=== PATIENT | female | born 1980 | race Caucasian/White ===

== ENCOUNTER 2017-06-26 19:44 | Emergency (ER) | payer OTHER ==
[2017-06-26 19:53] VITALS: BP 120/79; PULSE 65; RESP 16; TEMP 97.7; O2SAT 98
--- NOTE | 2017-06-26 21:19 | ED PDOC ---
Lower Extremity Pain/Injury Time Seen by Provider: 06/26/17 19:55 Chief Complaint (Nursing): Lower Extremity Problem/Injury Chief Complaint (Provider): Lower Extremity Problem/Injury History Per: Patient History/Exam Limitations: no limitations Onset/Duration Of Symptoms: Hrs Current Symptoms Are (Timing): Still Present Additional Complaint(s): 37 year old female presents to the ED complaining of a bruise to her left lower leg. Denies any trauma or falls. Patient states she took no medicine for pain prior to arrival. Patient expresses concern after she flew home from [place] today. Upon landing, patient went to urgent care for evaluation who did not evaluate her and advised her to go to the ED for an ultrasound due to possibility of blood clot. Patient is now requesting U/S evaluation. Denies smoking, control use, history of cancer, shortness of breath, cough, chest pain, calf tenderness, and pedal edema. PMD: None LNMP: One day prior to arrival. Past Medical History Reviewed: Historical Data, Nursing Documentation, Vital Signs Vital Signs: Last Vital Signs Temp 97.7 F 06/26/17 19:50 Pulse 65 06/26/17 19:50 Resp 16 06/26/17 19:50 BP 120/79 06/26/17 19:50 Pulse Ox 98 06/26/17 19:50 - Surgical History Surgical History: No Surg Hx - Family History Family History: States: Unknown Family Hx - Social History Current smoker - smoking cessation education provided: No Alcohol: Occasional Drugs: Denies - Allergies Allergies/Adverse Reactions: Allergies Allergy/AdvReac Type Severity Reaction Status Date / Time clarithromycin Allergy ITCHING Verified 06/26/17 19:53 Review of Systems ROS Statement: Except As Marked, All Systems Reviewed And Found Negative Skin: Positive for: Other (bruising to left lower leg) Physical Exam - Reviewed Nursing Documentation Reviewed: Yes Vital Signs Reviewed: Yes - Physical Exam Comments: GENERAL APPEARANCE: Patient is awake, alert, oriented x 3, in no acute distress. Ambulatory in ED with a steady gait. NECK: Supple, FROM ENT: Mucus membranes moist. SKIN: Warm, dry; (-) cyanosis. RESPIRATORY: (-) wheezing (-) rales (-) rhonchi; Lungs clear to auscultation bilaterally. Speaking in full sentences, respirations even and nonlabored. LOWER EXTREMITY: (+) 2cm x 2cm area of ecchymosis to lateral, proximal left lower leg, (-) tenderness, (-) skin break (+) full ROM of knee, ankle, and foot , (-) calf tenderness (-) palpable cord (-) pedal edema, (-) instability of valgus or varus stress, (-) anterior and posterior draw sign (+) 2+ distal pulses CARDIOVASCULAR: (-) murmur NEUROLOGIC: (+) distal sensation and strength symmetric to bilateral lower extremities. - Laboratory Results Urine POC: Negative - ECG O2 Sat by Pulse Oximetry: 98 (RA) Pulse Ox Interpretation: Normal Medical Decision Making Medical Decision Making: Clinical Impression: Ecchymosis of lower leg, concern for DVT Plan: -- Test -- Duplex Lower Extremity US 2114 Upreg: negative. Patient in ultrasound. 2199 U/S reviewed, radiology report follows EXAM: US Duplex Left Lower Extremity Veins CLINICAL HISTORY: 37 years old, female; Signs and symptoms; Other: Bruiced calf; Additional info: Sent by urgent care for u/s to R/O dvt TECHNIQUE: Real-time duplex ultrasound scan of the left lower extremity veins integrating B -mode twodimensional vascular structure, Doppler spectral analysis, color flow Doppler imaging and compression. COMPARISON: No relevant prior studies available. FINDINGS: Deep veins: Unremarkable. No DVT in the visualized common femoral, femoral, proximal deep femoral or popliteal veins. The veins demonstrate normal color flow, are normally compressible, with normal phasic flow and/or augmentation response. Superficial veins: Unremarkable. No thrombus in the visualized great saphenous vein. Soft tissues: No acute findings. No popliteal cyst. IMPRESSION: Normal left lower extremity duplex venous ultrasound. Thank you for allowing us to participate in the care of your patient. Dictated and Authenticated by: Damon Sr MD 06/26/2017 9:40 PM Eastern Time ([place] & [place]) On re-evaluation, patient offers no additional complaints, denies any chest pain or SOB. On exam, patient remains AAOx3, in no acute distress. On exam, neck is supple, lungs CTA, cardiac RRR, abdomen is soft and non-tender, neuro exam shows no focal findings. VSS. Diagnostic results d/w the patient in great detail. Dx of ecchymosis of lower extremity d/w the patient. Based on history, exam and diagnostic results plan will be for discharge and outpatient follow up. Advised to follow up with primary care physician in 1-2 days without fail. Advised to take medication as prescribed. Return to the emergency room at any time for any new or worsening symptoms. Patient states she fully agrees with and understands discharge instructions. States that she agrees with the plan and disposition. Verbalized and repeated discharge instructions and plan. I have given the patient opportunity to ask any additional questions. Scribe Attestation: Documented by Hima Donovan, acting as a scribe for Katy Odonnell PA-C. Provider Scribe Attestation: All medical record entries made by the Scribe were at my direction and personally dictated by me. I have reviewed the chart and agree that the record accurately reflects my personal performance of the history, physical exam, medical decision making, and the department course for this patient. I have also personally directed, reviewed, and agree with the discharge instructions and disposition. Disposition - Clinical Impression Clinical Impression: Contusion - Patient ED Disposition Is Patient to be Admitted: No Counseled Patient/Family Regarding: Diagnosis, Need For Followup - Disposition Referrals: [facility] [Outside] Disposition: Routine/Home Disposition Time: 21:57 Condition: STABLE Instructions: Taking Care of Bruises, Contusion (DC) Forms: [employer] (Romanian) Print Language: FRISIAN - POA Present On Arrival: None
--- NOTE | 2017-06-27 10:43 | US ---
HISTORY: sent by urgent care for U/S to r/o dvt . PRIORS: None. FINDINGS: 2-D, color and duplex Doppler analysis of the lower extremity venous circulation using routine protocol from the femoral veins through the popliteal veins. Venous compressibility: Normal. Flow and augmentation patterns: Normal. Visualized veins upper third of calf: Normal. Killian cyst: None. IMPRESSION: No sonographic or Doppler evidence for DVT in left lower extremity. A preliminary report was provided by [facility].
== END 2017-06-26 22:24 | disposition home or self-care (01) ==
LOC: H.ER 19:44
DX: S80.12XA Contusion of left lower leg, initial encounter (principal); Y92.89 Other specified places as the place of occurrence of the external cause

== ENCOUNTER 2017-10-07 20:43 | Emergency (ER) | payer OTHER ==
[2017-10-07 20:55] VITALS: RESP 16; TEMP 98.7
--- NOTE | 2017-10-07 22:04 | ED PDOC ---
HPI: Female Pain Time Seen by Provider: 10/07/17 21:08 Chief Complaint (Nursing): Female Genitourinary Chief Complaint (Provider): Female Genitourinary History Per: Patient History/Exam Limitations: no limitations Onset/Duration Of Symptoms: Days (x5) Additional Complaint(s): Bethnay Chapman is a 37 y/o [place] female with past medical history of kidney stones and UTI who presents to the ED complaining of right flank pain, onset x5 days ago. Patient states that she developed some urinary symptoms on Sunday and she went to urgent care where she was told she has a UTI. She is on her last day of Macrobid but symptoms have not improved and she still has urinary urgency. These symptoms with associated persisting right flank pain prompted today's ED visit. She denies any fever, chills, nausea, or vomiting. PMD: None provided Past Medical History Reviewed: Historical Data, Nursing Documentation, Vital Signs Vital Signs: Last Vital Signs Temp 98.7 F 10/07/17 20:51 Pulse 82 10/07/17 20:51 Resp 16 10/07/17 20:51 BP 119/50 L 10/07/17 20:51 Pulse Ox 100 10/07/17 20:51 - Medical History PMH: Kidney Stones Other PMH: UTI - Surgical History Surgical History: No Surg Hx - Family History Family History: States: Unknown Family Hx - Social History Current smoker - smoking cessation education provided: No Alcohol: None Drugs: Denies - Immunization History Hx Tetanus Toxoid Vaccination: No - Home Medications Home Medications: Ambulatory Orders Medication Instructions Recorded Ciprofloxacin [Cipro] 500 mg PO Q12 #14 tab 10/08/17 Tamsulosin [Flomax] 0.4 mg PO DAILY #7 cap 10/08/17 traMADol [Ultram] 50 mg PO Q6 #12 tab 10/08/17 - Allergies Allergies/Adverse Reactions: Allergies Allergy/AdvReac Type Severity Reaction Status Date / Time clarithromycin Allergy ITCHING Verified 06/26/17 19:53 Review of Systems ROS Statement: Except As Marked, All Systems Reviewed And Found Negative Constitutional: Negative for: Fever, Chills Gastrointestinal: Negative for: Nausea, Vomiting Genitourinary Female: Positive for: Dysuria, Frequency, Incontinence Physical Exam - Reviewed Nursing Documentation Reviewed: Yes Vital Signs Reviewed: Yes - Physical Exam Appears: Positive for: Non-toxic, No Acute Distress Head Exam: Positive for: ATRAUMATIC, NORMOCEPHALIC Skin: Positive for: Normal Color, Warm, Dry Eye Exam: Positive for: EOMI, Normal appearance, PERRL Neck: Positive for: Normal, Painless ROM, Supple Cardiovascular/Chest: Positive for: Regular Rate, Rhythm. Negative for: Murmur Respiratory: Positive for: Normal Breath Sounds. Negative for: Respiratory Distress Gastrointestinal/Abdominal: Positive for: Normal Exam, Soft. Negative for: Tenderness Back: Positive for: R CVA Tenderness (very mild) Extremity: Positive for: Normal ROM. Negative for: Pedal Edema, Deformity Neurologic/Psych: Positive for: Alert, Oriented. Negative for: Motor/Sensory Deficits - Laboratory Results Result Diagrams: 10/07/17 22:47 10/07/17 22:47 - ECG O2 Sat by Pulse Oximetry: 100 (RA) Pulse Ox Interpretation: Normal Medical Decision Making Medical Decision Making: Initial Impression: 37 y/o female with persisting urinary symptoms and right flank pain in setting of recent UTI Initial Plan: --CT abdomen and pelvis w/o contrast --US - Pelvis/Transvag --CMP --CBC with differential --Toradol [address] Adomen/Pelvis IMPRESSION: 1. Moderate right hydronephrosis and dilation of the right ureter secondary to an obstructing 4 mm calculus in the distal right ureter/ureteropelvic junction. 2. Diverticulosis. 2322 US Pelvis/Transvag FINDINGS: Uterus/cervix: The uterus measures 7.8 x 1.5 x 7.1 cm. No masses. The endometrium is normal in size and appearance, measuring 9 mm in thickness. Right ovary: The right ovary measures 2.4 x 1.9 x 1.9 cm. Normal flow is identified by color Doppler. No masses or significant dominant cysts. Normal blood flow. Left ovary: The left ovary measures 1.9 x 3.0 x 1.9 cm. Normal flow is identified by color Doppler. A dominant follicle is seen, measuring 1.3 x 1.9 x 1.6 cm. A 1.2 cm parovarian cyst is seen. Normal blood flow. Free fluid: There is no evidence of free pelvic fluid. IMPRESSION: No acute findings. 0028 On re-evaluation, patient reports marked improvement in her symptoms. Patient is stable upon discharge home. Instructed to take medications as prescribed and to follow up with PMD/clinic in 2-3 days. Diagnosis: Ureteral calculus, UTI Scribe Attestation: Documented by Nuno Segovia, acting as a scribe for Aidan Garcia MD. Provider Scribe Attestation: All medical record entries made by the Scribe were at my direction and personally dictated by me. I have reviewed the chart and agree that the record accurately reflects my personal performance of the history, physical exam, medical decision making, and the department course for this patient. I have also personally directed, reviewed, and agree with the discharge instructions and disposition. Disposition - Clinical Impression Clinical Impression: Ureteral calculus - Disposition Referrals: Isela Garcia MD [Staff Provider] - Aden Spring MD [Medical Doctor] - Disposition: Routine/Home Disposition Time: 00:30 Condition: STABLE Prescriptions: Ciprofloxacin [Cipro] 500 mg PO Q12 #14 tab Tamsulosin [Flomax] 0.4 mg PO DAILY #7 cap traMADol [Ultram] 50 mg PO Q6 #12 tab Instructions: Kidney Stones in Adults Forms: [employer] (Hong Konger)
[2017-10-07 22:53] LABS: BASO % 0.9 % (0.0-2.0); EOS # 0.2 K/uL (0.0-0.7); EOS % 5.5 % (0.0-4.0); LYMPH # 1.5 K/uL (1.0-4.3); LYMPH % 37.4 % (20.0-40.0); MEAN CELL VOLUME 84.9 fl (81.0-99.0); MEAN CORPUSCULAR HEMOGLOBIN 27.6 pg (27.0-31.0); MEAN CORPUSCULAR HGB CONC 32.5 g/dL (33.0-37.0); MEAN PLATELET VOLUME 10.6 fl (7.2-11.7); MONO # 0.4 K/uL (0.0-0.8); MONO % 9.8 % (0.0-10.0); NEUT # 1.9 K/uL (1.8-7.0); NEUT % 46.4 % (50.0-75.0); NRBC % 0.2 % (0.0-0.0); RBC 3.98 Mil/uL (3.80-5.20); RED CELL DISTRIBUTION WIDTH 14.4 % (11.5-14.5)
[2017-10-07 23:00] LABS: URINE BILIRUBIN NEGATIVE (NEGATIVE); URINE CLARITY SLIGHTY-CLOUDY (Clear); URINE COLOR YELLOW (YELLOW); URINE GLUCOSE (UA) NEG (Normal)
[2017-10-07 23:01] LABS: ALB/GLOB RATIO 1.3 (1.0-2.1); ALBUMIN 4.2 g/dL (3.5-5.0); CALCIUM 9.3 mg/dL (8.4-10.2); GFR AFRICAN-AMERICAN > 60; GFR NON-AFRICAN AMERICAN > 60; SQUAMOUS EPITHIAL 2 /hpf (0-5); URINE BACTERIA RARE (<OCC); URINE BLOOD NEGATIVE (NEGATIVE); URINE CALCIUM OXALATE CRYSTALS FEW /hpf (<OCC); URINE LEUKOCYTE ESTERASE TRACE Leu/uL (Negative); URINE PROTEIN NEGATIVE (NEGATIVE); URINE UROBILINOGEN 0.2-1.0 mg/dL (0.2-1.0)
[2017-10-07 23:03] LABS: ALT/SGPT 25 U/L (9-52); AST/SGOT 30 U/L (14-36); BLOOD UREA NITROGEN 17 mg/dl (7-17)
[2017-10-08] MEDS ORDERED: cefTRIAXone (Rocephin) 1 gm Inj ONE (00:23)
[2017-10-08 02:49] VITALS: BP 122/70; PULSE 86; O2SAT 98
--- NOTE | 2017-10-08 09:46 | US ---
Date of service: 10/07/2017 HISTORY: pelvic pain COMPARISON: None available. TECHNIQUE: Transabdominal and transvaginal pelvic ultrasound was performed. FINDINGS: UTERUS: Measures 7.8 x 4.5 x 7.1 cm. Anteverted, normal in size and appearance. No fibroid or other mass lesion seen. ENDOMETRIUM: Measures 10 mm in diameter. Within normal limits. CERVIX: No cervical abnormality identified. RIGHT OVARY: Measures 2.4 x 1.9 x 1.9 cm. No solid mass. Normal flow. LEFT OVARY: Measures 1.9 x 3.0 x 1.9 cm. No solid mass. Normal flow. There is a 1.9 cm simple cyst. FREE FLUID: No significant free fluid noted. OTHER FINDINGS: None. IMPRESSION: Unremarkable pelvic ultrasound. A preliminary report was provided by [facility].
--- NOTE | 2017-10-08 11:29 | CT ---
Date of service: 10/07/2017 PROCEDURE: CT Abdomen and Pelvis without intravenous contrast HISTORY: renal colic COMPARISON: None. TECHNIQUE: Unenhanced study. Neither oral nor intravenous contrast administered. Radiation dose: Total exam DLP = 363.32 mGy-cm. This CT exam was performed using one or more of the following dose reduction techniques: Automated exposure control, adjustment of the mA and/or kV according to patient size, and/or use of iterative reconstruction technique. FINDINGS: LOWER THORAX: Unremarkable. LIVER: Unremarkable. No gross lesion or ductal dilatation. GALLBLADDER AND BILE DUCTS: Unremarkable. PANCREAS: Unremarkable. No gross lesion or ductal dilatation. SPLEEN: Unremarkable. ADRENALS: Unremarkable. No mass. KIDNEYS AND URETERS: Unilateral, right hydroureteronephrosis related to 4 mm obstructing calculus within 1.5 cm of the right ureterovesical junction. Periureteral edema at tests to the acuity of the obstruction. VASCULATURE: Unremarkable. No aortic aneurysm. BOWEL: Unremarkable. No obstruction. No gross mural thickening. APPENDIX: Unremarkable. Normal appendix. PERITONEUM: Unremarkable. No free fluid. No free air. LYMPH NODES: Unremarkable. No enlarged lymph nodes. BLADDER: Unremarkable. REPRODUCTIVE: Unremarkable. BONES: No acute fracture. OTHER FINDINGS: None. IMPRESSION: Right hydroureteronephrosis related to distal 4 mm obstructing calculus. The calculus is within 1.5 cm of the right ureterovesical junction. Concordant results (preliminary interpretation) provided by [facility]. Procedure Completed: 22:12. Preliminary ([facility]) Report: Dictated and Authenticated: 23:17. Final Interpretation: 11:27. October 08, 2017.
== END 2017-10-08 01:35 | disposition home or self-care (01) ==
LOC: H.ER 20:43
DX: N39.0 Urinary tract infection, site not specified (principal); N13.6 Pyonephrosis; Z87.442 Personal history of urinary calculi
CPT/HCPCS: 74176; 76830; 76856; 80053; 81003; 81025; 85025; 87086; 96374; 96375; 99284; J0696; J1885

== ENCOUNTER 2017-11-08 09:10 | Observation (INO) | payer OTHER ==
[2017-11-08 09:20] VITALS: BMI 24.7
[2017-11-08] MEDS ORDERED: Sodium Chloride 0.9% 1,000 ML IV STA (09:47)
--- NOTE | 2017-11-08 09:49 | ED PDOC ---
HPI: Back Time Seen by Provider: 11/08/17 09:40 Chief Complaint (Nursing): Back Pain Chief Complaint (Provider): Back pain History Per: Patient History/Exam Limitations: no limitations Onset/Duration Of Symptoms: Days (today) Additional Complaint(s): Pt. with R flank pain going into the right groin. No nausea, vomit, diarrhea. No weakness. Has urgency of urination, but no dysuria or frequency of urination. Has a 4mm stone that was seen on ct at [facility]. Went to a urologist in [facility] who did x-ray. Pain still present so advised to get a ct. Ongoing for 5 weeks Past Medical History Reviewed: Nursing Documentation, Vital Signs Vital Signs: Last Vital Signs Temp 97.3 F L 11/08/17 09:18 Pulse 64 11/08/17 09:18 Resp BP 122/76 11/08/17 09:18 Pulse Ox 100 11/08/17 09:18 - Medical History PMH: Asthma, Kidney Stones - Surgical History Surgical History: No Surg Hx - Family History Family History: States: Unknown Family Hx - Living Arrangements Living Arrangements: With Family - Immunization History Hx Tetanus Toxoid Vaccination: No - Home Medications Home Medications: Ambulatory Orders Medication Instructions Recorded Ciprofloxacin [Cipro] 500 mg PO Q12 #14 tab 10/08/17 Tamsulosin [Flomax] 0.4 mg PO DAILY #7 cap 10/08/17 traMADol [Ultram] 50 mg PO TID PRN #12 tab 10/08/17 - Allergies Allergies/Adverse Reactions: Allergies Allergy/AdvReac Type Severity Reaction Status Date / Time clarithromycin Allergy ITCHING Verified 06/26/17 19:53 Review of Systems ROS Statement: Except As Marked, All Systems Reviewed And Found Negative Gastrointestinal: Positive for: Abdominal Pain Musculoskeletal: Positive for: Back Pain Physical Exam - Reviewed Nursing Documentation Reviewed: Yes Vital Signs Reviewed: Yes - Physical Exam Appears: Positive for: Non-toxic, No Acute Distress Head Exam: Positive for: ATRAUMATIC, NORMAL INSPECTION, NORMOCEPHALIC Skin: Positive for: Normal Color, Warm, DRY Eye Exam: Positive for: EOMI, Normal appearance, PERRL ENT: Positive for: Normal ENT Inspection Neck: Positive for: Normal, Painless ROM Cardiovascular/Chest: Positive for: Regular Rate, Rhythm Respiratory: Positive for: CNT, Normal Breath Sounds Gastrointestinal/Abdominal: Positive for: Normal Exam, Soft. Negative for: Tenderness Back: Positive for: Normal Inspection. Negative for: L CVA Tenderness, R CVA Tenderness Extremity: Positive for: Normal ROM. Negative for: Tenderness, Pedal Edema Neurologic/Psych: Positive for: Alert, Oriented - Laboratory Results Result Diagrams: 11/08/17 09:52 11/08/17 09:52 Interpretation Of Abn Labs: no acute - ECG O2 Sat by Pulse Oximetry: 100 Pulse Ox Interpretation: Normal - CT Scan/US ct Other Rad Studies (CT/US): Read By Radiologist Other Rad Interpretation: ct with stone R uvj - Progress ED Course And Treament: 1234: Stable. AAOx3. Pain controlled. Spoke with Dr. Russo. Will admit pt. to his service for further eval and tx. Disposition - Clinical Impression Clinical Impression: Kidney stone - Patient ED Disposition Is Patient to be Admitted: Yes Counseled Patient/Family Regarding: Studies Performed, Diagnosis - Disposition Disposition Time: 12:00 Condition: FAIR - Pt Status Changed To: Hospital Disposition Of: Observation - POA Present On Arrival: None
[2017-11-08 10:11] LABS: EOS # 0.1 K/uL (0.0-0.7); EOS % 2.4 % (0.0-4.0); LYMPH # 0.9 K/uL (1.0-4.3); LYMPH % 36.9 % (20.0-40.0); MEAN CORPUSCULAR HEMOGLOBIN 27.7 pg (27.0-31.0); MEAN CORPUSCULAR HGB CONC 32.9 g/dL (33.0-37.0); MEAN PLATELET VOLUME 9.2 fl (7.2-11.7); MONO # 0.3 K/uL (0.0-0.8); MONO % 13.2 % (0.0-10.0); NEUT # 1.1 K/uL (1.8-7.0); NEUT % 46.5 % (50.0-75.0); NRBC % 0.6 % (0.0-0.0); RBC 4.32 Mil/uL (3.80-5.20); RED CELL DISTRIBUTION WIDTH 14.3 % (11.5-14.5); WHITE BLOOD COUNT 2.3 K/uL (4.8-10.8)
[2017-11-08] MEDS ORDERED: Morphine 4 MG/ML VIAL ONE (10:20)
[2017-11-08 10:29] LABS: ALB/GLOB RATIO 1.4 (1.0-2.1); ALBUMIN 4.1 g/dL (3.5-5.0); ALT/SGPT 27 U/L (9-52); AST/SGOT 20 U/L (14-36); BLOOD UREA NITROGEN 10 mg/dl (7-17); CALCIUM 9.2 mg/dL (8.4-10.2); GFR AFRICAN-AMERICAN > 60; GFR NON-AFRICAN AMERICAN > 60
--- NOTE | 2017-11-08 11:40 | CT ---
Date of service: 11/08/2017 PROCEDURE: CT Abdomen and Pelvis without intravenous contrast HISTORY: R/O stone COMPARISON: 10/07/2017. TECHNIQUE: Unenhanced study. Neither oral nor intravenous contrast administered. Radiation dose: Total exam DLP = 377.79 mGy-cm. This CT exam was performed using one or more of the following dose reduction techniques: Automated exposure control, adjustment of the mA and/or kV according to patient size, and/or use of iterative reconstruction technique. FINDINGS: LOWER THORAX: Unremarkable. LIVER: Unremarkable. No gross lesion or ductal dilatation. GALLBLADDER AND BILE DUCTS: Unremarkable. PANCREAS: Unremarkable. No gross lesion or ductal dilatation. SPLEEN: Unremarkable. ADRENALS: Unremarkable. No mass. KIDNEYS AND URETERS: Milder right hydroureteronephrosis. Left: Unremarkable. No hydronephrosis. No solid mass. VASCULATURE: Unremarkable. No aortic aneurysm. BOWEL: Constipation without fecal impaction or obstruction. APPENDIX: Unremarkable. Normal appendix. PERITONEUM: Unremarkable. No free fluid. No free air. LYMPH NODES: Unremarkable. No enlarged lymph nodes. BLADDER: Calculus identified in the urinary bladder in close proximity to the right ureterovesical junction. REPRODUCTIVE: Unremarkable. BONES: No acute fracture. OTHER FINDINGS: None. IMPRESSION: 3 mm calculus adjacent to the right ureterovesical junction. Presumptive evidence for recently passed right ureteral calculus; the right ureter and collecting system are mildly dilated. No upper tract calculi identified.
[2017-11-08] MEDS ORDERED: Dextrose 5%/0.45% NS 1,000 ML IV SCH (17:30)
[2017-11-08 19:19] LABS: PROTHROMBIN TIME 11.3 Seconds (9.8-13.1)
[2017-11-08 19:22] LABS: PARTIAL THROMBOPLASTIN TIME 28.9 Seconds (25.6-37.1)
[2017-11-08] MEDS: HYDROmorphone 1 mg/ml ISec IVP PRN (23:40)
[2017-11-09] MEDS ORDERED: cefTRIAXone (Rocephin) 1 gm Inj ONE (08:29)
[2017-11-09] MEDS ORDERED: Lactated Ringer's 1,000 ML IV ONE (08:35)
[2017-11-09] MEDS ORDERED: cefTRIAXone (Rocephin) 1 gm Inj IVPB ONE (08:35)
[2017-11-09] MEDS ORDERED: Propofol 10 mg/ml Inj (20 ML) ONE (08:36)
[2017-11-09] MEDS ORDERED: Midazolam 2 MG/2 ML VIAL ONE (08:36)
[2017-11-09] MEDS ORDERED: HYDROmorphone 1 mg/ml ISec IVP PRN (09:39)
[2017-11-09] MEDS ORDERED: Lactated Ringer's 1,000 ML IV SCH (09:45)
[2017-11-09 10:36] VITALS: RESP 18
[2017-11-09] MEDS: HYDROmorphone 1 mg/ml ISec IVP PRN (10:46)
--- NOTE | 2017-11-09 11:09 | RAD ---
Date of service: 11/09/2017 PROCEDURE: Intraoperative Fluoroscopy. HISTORY: CYSTO FINDINGS: Fluoroscopic assistance was provided for stent placement. Please refer to the operative report from MARBELLA Chavez. 32 seconds fluoroscopic time employed.
[2017-11-09 11:58] VITALS: O2SAT 99
--- NOTE | 2017-11-09 13:19 | OP ---
Copied To: Aden Spring MD Attending MD: Aden Spring MD PROCEDURE DATE: 11/09/2017 PREOPERATIVE DIAGNOSIS: Right renal colic secondary to right ureteral calculus. POSTOPERATIVE DIAGNOSIS: Right renal colic secondary to right ureteral calculus. PROCEDURES PERFORMED: Cystoscopy, right ureteroscopy, stone basketing, and right double J-stent placement. DESCRIPTION OF PROCEDURE: Under general anesthesia, the patient was placed on the operating room table in dorsal lithotomy position. The area of the groin was draped and prepped in a sterile manner. Using a short ureteroscope, I entered into the bladder atraumatically. She had severe edema surrounding the ureteral orifice on the right. The left side was completely normal. I had a difficult time inserting the guidewire trying several between the straight and a curve guidewire to rake the area and eventually find the ureteral opening. I was able to get the guidewire in place over which I passed the ureteroscope and was able to visualize the obstructing stone. I then left the guidewire in as a safety and then reentered in with a stone basket. I removed the stone completely. I did a second pass look. There was no residual stones left. At this time, then over the existing safety wire, I advanced a 6-Icelandic multi-link double J-stent and fluoroscopy into good position and then the patient was taken from the operating room in good condition. Aden Spring MD
[2017-11-09 15:10] VITALS: BP 102/64; PULSE 71; TEMP 97.6
== END 2017-11-09 15:24 | disposition home or self-care (01) ==
LOC: H.ER 09:10 → H.ERHOLD 12:33 → H.MEDSURG1 16:30
PROVIDERS: ADMIT Urology; ATTEND Urology
DX: N20.2 Calculus of kidney with calculus of ureter (principal); Z87.442 Personal history of urinary calculi; J45.909 Unspecified asthma, uncomplicated
CPT/HCPCS: 52352; 74176; 76000; 80053; 81025; 82355; 85025; 85610; 85730; 96360; 99283; G0378; J0696; J1170; J2250; J2270; J2704; J3010; J7030; J7042; J7120